=== PATIENT | female | born 1945 | race Caucasian/White ===

== ENCOUNTER 2020-01-24 14:17 | Outpatient (CLI) | payer MEDICARE, OTHER, SELFPAY ==
--- NOTE | ~2020-01-24 | CT_ITS ---
EXAMINATION: CT abdomen pelvis w con DATE: 01/24/2020 15:17 INDICATION: Renal cyst annual checkup TECHNIQUE: Computed tomography (CT) of the abdomen and pelvis was performed with 100 cc Omnipaque 350 intravenous contrast. Automated exposure control and iterative reconstruction technique were employe d. Exam dose: 663.35 mGy-cm total exam DLP. COMPARISON: 01/03/2019 CT abdomen pelvis FINDINGS: Fat-containing right foramen of Bochdalek hernia. Mild discoid atelectasis or scarring at the lung bases. Middle lobe calcified pulmonary granuloma. Hepatic calcifications, consistent with old granulomatous disease. The liver, gallbladder, spleen, pa ncreas, bile ducts and pancreatic duct, gallbladder and adrenal glands are unremarkable. There is interval enlargement of the previously reported 16 mm lower pole right renal cyst. This curr ently measures approximately 22 x 25 mm. MRI renal scan is recommended for further evaluation. There may be due to very small lower pole right renal cyst, too small to definitively characterize. Approxi mately 5 mm cortical cyst of the mid lateral left kidney. The urinary bladder is unremarkable. Status post hysterectomy. Normal caliber of the abdominal aorta. No intraperitoneal or retroperitoneal or pelvic mass lesion or adenopathy or ascites. There are numerous diverticula of the left colon, particularly the sigmoid area; no CT evidence of di verticulitis. A transverse colon diverticulum is noted near the hepatic flexure. Normal appendix. No bowel obstruction or intraperitoneal free air. Small fat-containing umbilical hernia. There is severe degenerative change at the apophyseal joints of the lumbar and lumbosacral area with associated grade 1 anterolisthesis at L4-5 and L5-S1. There is moderately prominent degenerative disc disease at L5-S1. Diffuse osteopenia. IMPRESSION: Interval enlargement of right lower pole renal cyst from 16 millimeters size to 22 x 25 mm dimension since 01/03/2019; MRI renal scan is recommended for further evaluation Dr. Cervantes telephoned the report and MRI kidney recommendation to Dr. Derek Van on 01/24/2020 at 162 0 hours Reviewed, dictated and finalized at [facility]. Reviewed, dictated and finalized at location B. [employer] IMPRESSION: Interval enlargement of right lower pole renal cyst from 16 millim eters size to 22 x 25 mm dimension since 01/03/2019; MRI renal scan is recommend ed for further evaluation Dr. Cervantes telephoned the report and MRI kidney recommendation to Dr. Derek harrison on 01/24/2020 at 1620 hours
[2020-01-24 14:54] LABS: Estimated Glomerular Filt Rate > 60
== END 2020-01-24 14:18 | disposition home or self-care (01) ==
LOC: CHSIMG 14:21
PROVIDERS: PCP Internal Medicine; Visit Provider Urology
DX: N28.1 Cyst of kidney, acquired (principal)
CPT/HCPCS: 74177; Q9965

== ENCOUNTER 2020-03-21 07:08 | Outpatient (CLI) | payer MEDICARE, SELFPAY ==
[2020-03-21 07:19] LABS: Basophils Absolute Auto 0.07 K/mm3 (0.00-0.10); Basophils Percent Auto 1.2 % (0.0-1.0); Eosinophils Absolute Auto 0.12 K/mm3 (0.02-0.50); Hemoglobin 14.7 g/dL (11.7-13.8); Immature Granulocyte Absolute 0.01 K/mm3 (0.00-0.00); Immature Granulocyte Percent A 0.2 % (0.0-0.0); Lymphocytes Percent Auto 32.9 % (18.0-42.0); Mean Corpuscular HGB Conc 33.4 g/dL (32.0-36.0); Mean Corpuscular Hemoglobin 29.1 pg (27.0-31.0); Mean Corpuscular Volume 87.1 fL (78.0-102.0); Mean Platelet Volume 9.8 fl (9.2-11.8); Monocytes Absolute Auto 0.44 K/mm3 (0.10-0.90); Monocytes Percent Auto 7.2 % (2.0-11.0); Neutrophils Absolute Auto 3.4 K/mm3 (1.7-7.2); Neutrophils Percent Auto 56.5 % (50.0-70.0); Platelet Count Result 208 K/mm3 (150-420); Red Blood Count 5.05 M/mm3 (4.20-5.40); Red Cell Distribution Width 13.2 % (11.6-14.4); White Blood Count 6.1 K/mm3 (4.8-10.8)
[2020-03-21 07:23] LABS: Add Urine Microscopic? NO; Appearance Urine Clear (Clear); Bilirubin Urine Negative (Negative); Blood Urine Negative (Negative); Color Urine Yellow (Yellow); Glucose Urine UA Negative (Negative); Ketones Urine Negative (Negative); Leukocyte Esterase Ur Negative (Negative); Nitrate Urine Negative (Negative); Protein Urine Negative (Negative); Urobilinogen Urine 0.2 mg/dL (0.2-1.0)
[2020-03-21 08:30] LABS: Alanine Aminotransferase 23 U/L (14-59); Albumin Level 3.8 g/dL (3.4-5.0); Alkaline Phosphatase 69 U/L (46-116); Anion Gap 15.8 mmol/L (7-16); Aspartate Amino Transferase 18 U/L (15-37); Bilirubin,Total 0.5 mg/dL (0.00-1.00); Blood Urea Nitrogen 13 mg/dL (7-18); Calcium 8.7 mg/dL (8.5-10.1); Carbon Dioxide 26 mmol/L (21-32); Chloride 107 mmol/L (98-108); Cholesterol 176 mg/dL (0-200); Creatine Kinase 60 U/L (26-192); Estimated Glomerular Filt Rate > 60; Free T4 Free Thyroxine 0.88 ng/dL (0.76-1.46); Glucose 112 mg/dL (70-99); HDL Direct 55 mg/dL (40-60); LDL Cholesterol Calculated 99 mg/dL (<130); Osmolality Calculated 299 mOsm/kg (285-295); Potassium 4.8 mmol/L (3.5-5.1); Sodium 144 mmol/L (136-145); Thyroid Stimulating Hormone 1.88 uIU/mL (0.36-3.74); Total Protein 6.6 g/dL (6.4-8.2); Triglycerides 108 mg/dL (0-150)
[2020-03-25 10:00] LABS: Vitamin D 25 Hydroxy 28 ng/mL (30-100)
== END 2020-03-21 07:09 | disposition home or self-care (01) ==
PROVIDERS: PCP Internal Medicine; Visit Provider Internal Medicine
DX: I48.0 Paroxysmal atrial fibrillation (principal); R73.01 Impaired fasting glucose; E04.2 Nontoxic multinodular goiter; E78.2 Mixed hyperlipidemia; M15.0 Primary generalized (osteo)arthritis; M81.0 Age-related osteoporosis without current pathological fracture
CPT/HCPCS: 36415; 80053; 80061; 81003; 82306; 82550; 83036; 84439; 84443; 84481; 85025

== ENCOUNTER 2020-06-02 12:15 | Outpatient (CLI) | payer MEDICARE, OTHER, SELFPAY ==
--- NOTE | ~2020-06-02 | MM_ITS ---
EXAMINATION: MM screening [facility] BI w bj HISTORY: Screening mammogram TECHNIQUE: Craniocaudal and mediolateral oblique 3-D tomosynthesis images were obtained and synthetic 2-D images were generated. CAD analysis was submitted and interpreted. COMPARISON: 05/07/2019, 10/26/2018, 05/04/2018 BREAST PARENCHYMAL COMPOSITION: The breasts are almost entirely fatty. FINDINGS: There is no evidence of suspicious mass, calcification, or architectural distortion to sugg est malignancy in either breast. There has been no suspicious interval change. IMPRESSION: 1. No mammographic evidence of malignancy. 2. Recommend routine screening mammography in one year. BI-RADS Category 1: Negative Reviewed, dictated and finalized at location A.
== END 2020-06-02 12:16 | disposition home or self-care (01) ==
LOC: CHSIMG 12:17
PROVIDERS: PCP Internal Medicine; Visit Provider Internal Medicine
DX: Z12.31 Encounter for screening mammogram for malignant neoplasm of breast (principal)
CPT/HCPCS: 77063; 77067

== ENCOUNTER 2020-08-14 07:51 | Outpatient (CLI) | payer MEDICARE, OTHER, SELFPAY ==
--- NOTE | ~2020-08-14 | CT_ITS ---
EXAMINATION: CT abdomen pelvis wo/w con DATE: 08/14/2020 08:40 INDICATION: Follow-up renal cyst TECHNIQUE: Computed tomography (CT) of the abdomen and pelvis was performed without and with 100 cc O mnipaque 350 intravenous contrast. The dose-length product was 927.16 mGy-cm. Automated exposure cont rol and iterative reconstruction technique were employed. COMPARISON: Comparison to multiple prior studies sequentially, with oldest reviewed study dated 03/31. . FINDINGS: Lung bases are unremarkable. No significant pleural or pericardial effusion. Dependent atel ectasis. Heart size normal. Elevated left diaphragm. There are calcified granulomas in the liver and spleen. There is a 2.5 cm cyst at the lower pole of the right kidney measuring 14 Hounsfield units pr econtrast and 19 Hounsfield units postcontrast there is a small exophytic 1 cm cyst lateral margin of the left kidney. The pancreas is unremarkable. Gallbladder is present. Nonobstructive bowel gas ivy valdemar. Normal appendix. There is scoliosis. Mild lumbar spondylosis. Grade 1 degenerative spondylolisth esis at L4-5. No significant vascular abnormality. No lymphadenopathy. Uterus is surgically absent. No abnormal pel cruz masses or fluid collections. Tiny fat-containing umbilical hernia. No osteolytic or osteoblastic lesions. IMPRESSION: 1. Stable 2.5 cm hypodense mass of the right kidney at the lower pole without appreciable enhancement , compatible with cyst. 1 cm left renal cyst also identified. Reviewed, dictated and finalized at location A. IMPRESSION: 1. Stable 2.5 cm hypodense mass of the right kidney at the lower pole without a ppreciable enhancement, compatible with cyst. 1 cm left renal cyst also identif ied.
[2020-08-14 08:09] LABS: Estimated Glomerular Filt Rate > 60
== END 2020-08-14 07:52 | disposition home or self-care (01) ==
PROVIDERS: PCP Internal Medicine; Visit Provider Urology
DX: N28.1 Cyst of kidney, acquired (principal)
CPT/HCPCS: 74178; Q9965

== ENCOUNTER 2020-10-07 14:47 | Outpatient (CLI) | payer MEDICARE, OTHER, SELFPAY | END 2020-10-07 14:48 | disposition home or self-care (01) | LOC: CHSLAB 14:51 | PROVIDERS: PCP Internal Medicine; Visit Provider Specialist | DX: L81.4 Other melanin hyperpigmentation (principal); C44.622 Squamous cell carcinoma of skin of right upper limb, including shoulder | CPT/HCPCS: 88305; 88342 ==

== ENCOUNTER 2020-10-17 07:41 | Outpatient (CLI) | payer MEDICARE, SELFPAY ==
[2020-10-17 07:51] LABS: Basophils Absolute Auto 0.05 K/mm3 (0.00-0.10); Basophils Percent Auto 0.8 % (0.0-1.0); Eosinophils Absolute Auto 0.15 K/mm3 (0.02-0.50); Eosinophils Percent Auto 2.5 % (1.0-6.0); Hematocrit 43.7 % (35.0-42.0); Hemoglobin 14.3 g/dL (11.7-13.8); Immature Granulocyte Absolute 0.01 K/mm3 (0.00-0.00); Immature Granulocyte Percent A 0.2 % (0.0-0.0); Lymphocytes Absolute Auto 2.11 K/mm3 (1.10-4.50); Lymphocytes Percent Auto 35.3 % (18.0-42.0); Mean Corpuscular HGB Conc 32.7 g/dL (32.0-36.0); Mean Corpuscular Hemoglobin 28.7 pg (27.0-31.0); Mean Corpuscular Volume 87.8 fL (78.0-102.0); Mean Platelet Volume 9.6 fl (9.2-11.8); Monocytes Absolute Auto 0.49 K/mm3 (0.10-0.90); Monocytes Percent Auto 8.2 % (2.0-11.0); Neutrophils Absolute Auto 3.2 K/mm3 (1.7-7.2); Platelet Count Result 205 K/mm3 (150-420); Red Blood Count 4.98 M/mm3 (4.20-5.40); Red Cell Distribution Width 13.1 % (11.6-14.4)
[2020-10-17 07:56] LABS: Appearance Urine Clear (Clear); Bilirubin Urine Negative (Negative); Color Urine Yellow (Yellow); Glucose Urine UA Negative (Negative); Ketones Urine Negative (Negative); Leukocyte Esterase Ur Negative (Negative); Nitrate Urine Negative (Negative); Protein Urine Negative (Negative); Specific Grav Ur >= 1.030 (1.010-1.020); Urobilinogen Urine 0.2 mg/dL (0.2-1.0)
[2020-10-17 08:00] LABS: Hemoglobin A1C 5.8 % (<5.7)
[2020-10-17 09:02] LABS: Alanine Aminotransferase 24 U/L (14-59); Albumin Level 3.9 g/dL (3.4-5.0); Alkaline Phosphatase 71 U/L (46-116); Anion Gap 8 mmol/L (8-16); Aspartate Amino Transferase 15 U/L (15-37); Bilirubin,Total 0.4 mg/dL (0.00-1.00); Blood Urea Nitrogen 14 mg/dL (7-18); Calcium 8.6 mg/dL (8.5-10.1); Carbon Dioxide 28 mmol/L (21-32); Chloride 107 mmol/L (98-108); Cholesterol 186 mg/dL (0-200); Creatine Kinase 64 U/L (26-192); Estimated Glomerular Filt Rate > 60; Free T3 2.78 pg/mL (2.18-3.98); Glucose 115 mg/dL (70-99); HDL Direct 54 mg/dL (40-60); LDL Cholesterol Calculated 111 mg/dL (<130); Osmolality Calculated 297 mOsm/kg (285-295); Potassium 4.7 mmol/L (3.5-5.1); Sodium 143 mmol/L (136-145); Thyroid Stimulating Hormone 2.24 uIU/mL (0.36-3.74); Total Protein 6.7 g/dL (6.4-8.2); Triglycerides 103 mg/dL (0-150)
[2020-10-17 09:10] LABS: Add Urine Microscopic? YES; Blood Urine Trace-Intact (Negative)
[2020-10-17 09:11] LABS: Bacteria Urine 2+ /hpf; RBC Urine 0-2 /hpf (0-2); Squamous Epithelial Cell Urine Moderate /hpf (Few); WBC Urine 0-3 /hpf (0-3)
[2020-10-21 12:25] LABS: Vitamin D 25 Hydroxy 24 ng/mL (30-100)
== END 2020-10-17 07:42 | disposition home or self-care (01) ==
LOC: CHSLAB 07:43
PROVIDERS: PCP Internal Medicine; Visit Provider Internal Medicine
DX: M81.0 Age-related osteoporosis without current pathological fracture (principal); I48.0 Paroxysmal atrial fibrillation; R73.01 Impaired fasting glucose; E78.2 Mixed hyperlipidemia; E04.2 Nontoxic multinodular goiter
CPT/HCPCS: 36415; 80053; 80061; 81001; 82306; 82550; 83036; 84439; 84443; 84481; 85025

== ENCOUNTER 2020-10-29 14:05 | Outpatient (CLI) | payer MEDICARE, OTHER, SELFPAY ==
--- NOTE | 2020-11-28 16:28 | WPDHOLTEREM ---
Holter/Event Monitor Holter/Event Monitor Date of procedure: 10/29/20 Procedure Type: Event monitor Indications: PAF Conclusion: 1. 27 days event monitor between 10/29/20-11/27/19. There are 59 available transmissions for analysis. 2. Predominant rhythm is sinus rhythm. HR range 50-120 bpm; average HR 65 bpm. 3. There are occasional premature supraventricular complexes with total burden of 1%. There is one short run of atrial tachycardia lasting 4 beats at 105-140 bpm. 4. There are intermittent premature ventricular complexes with total burden of 5%. No ventricular tachycardia. 5. No significant pauses greater than 2 seconds. 6. Patient reports 36 episodes of symptoms of skipped beats, heart racing and symptoms other than listed which demonstate sinus rhythm, HR range 52-82 bpm with PAC's and PVC's and an atrial triplet.
== END 2020-10-29 14:06 | disposition home or self-care (01) ==
PROVIDERS: PCP Internal Medicine; Visit Provider Internal Medicine
DX: I48.0 Paroxysmal atrial fibrillation (principal)
CPT/HCPCS: 93270

== ENCOUNTER 2021-05-14 08:01 | Outpatient (CLI) | payer MEDICARE, SELFPAY ==
[2021-05-14 08:22] LABS: Appearance Urine Clear (Clear); Bilirubin Urine Negative (Negative); Color Urine Yellow (Yellow); Glucose Urine UA Negative (Negative); Ketones Urine Negative (Negative); Leukocyte Esterase Ur Negative (Negative); Nitrate Urine Negative (Negative); Protein Urine Negative (Negative); Specific Grav Ur >= 1.030 (1.010-1.020); Urobilinogen Urine 0.2 mg/dL (0.2-1.0)
[2021-05-14 08:31] LABS: Creatinine Urine 154.33 mg/dL (40-278); MALB Creatinine Ratio 9.3 mg/g (0-30); Microalbumin Urine Random 14.5 mg/L
[2021-05-14 08:33] LABS: Add Urine Microscopic? YES; Blood Urine Trace-Intact (Negative); RBC Urine 0-2 /hpf (0-2); Squamous Epithelial Cell Urine Few /hpf (Few); WBC Urine None seen /hpf (0-3)
[2021-05-14 08:34] LABS: Bacteria Urine Trace /hpf
[2021-05-14 09:07] LABS: Alanine Aminotransferase 28 U/L (14-59); Albumin Level 3.7 g/dL (3.4-5.0); Alkaline Phosphatase 73 U/L (46-116); Anion Gap 11 mmol/L (8-16); Aspartate Amino Transferase 16 U/L (15-37); Bilirubin,Total 0.6 mg/dL (0.00-1.00); Blood Urea Nitrogen 19 mg/dL (7-18); Calcium 8.8 mg/dL (8.5-10.1); Carbon Dioxide 26 mmol/L (21-32); Chloride 105 mmol/L (98-108); Cholesterol 187 mg/dL (0-200); Creatine Kinase 63 U/L (26-192); Estimated Glomerular Filt Rate > 60; Free T4 Free Thyroxine 0.87 ng/dL (0.76-1.46); Glucose 123 mg/dL (70-99); HDL Direct 57 mg/dL (40-60); LDL Cholesterol Calculated 115 mg/dL (<130); Osmolality Calculated 297 mOsm/kg (285-295); Potassium 4.6 mmol/L (3.5-5.1); Sodium 142 mmol/L (136-145); Thyroid Stimulating Hormone 1.42 uIU/mL (0.36-3.74); Total Protein 6.5 g/dL (6.4-8.2); Triglycerides 73 mg/dL (0-150)
[2021-05-18 02:22] LABS: Vitamin D 25 Hydroxy 37 ng/mL (30-100)
== END 2021-05-14 08:02 | disposition home or self-care (01) ==
LOC: CHSLAB 08:03
PROVIDERS: PCP Internal Medicine; Visit Provider Internal Medicine
DX: I48.0 Paroxysmal atrial fibrillation (principal); R73.01 Impaired fasting glucose; E04.2 Nontoxic multinodular goiter; I10 Essential (primary) hypertension; E55.9 Vitamin D deficiency, unspecified
CPT/HCPCS: 36415; 80053; 80061; 81001; 82043; 82306; 82550; 84439; 84443

== ENCOUNTER 2021-06-05 12:09 | Outpatient (CLI) | payer MEDICARE, SELFPAY ==
--- NOTE | ~2021-06-05 | MM_ITS ---
EXAMINATION: MM screening [facility] BI w bj HISTORY: Screening mammogram TECHNIQUE: Craniocaudal and mediolateral oblique 3-D tomosynthesis images were obtained and synthetic 2-D images were generated. CAD analysis was submitted and interpreted. COMPARISON: 06/02/2020, 05/07/2019, 10/26/2018, 05/04/2018 BREAST PARENCHYMAL COMPOSITION: The breasts are almost entirely fatty. FINDINGS: There is no evidence of suspicious mass, calcification, or architectural distortion to sugg est malignancy in either breast. There has been no suspicious interval change. IMPRESSION: 1. No mammographic evidence of malignancy. 2. Recommend routine screening mammography in one year. BI-RADS Category 1: Negative Reviewed, dictated and finalized at location A.
== END 2021-06-05 12:10 | disposition home or self-care (01) ==
LOC: CHSIMG 12:12
PROVIDERS: PCP Internal Medicine; Visit Provider Internal Medicine
DX: Z12.31 Encounter for screening mammogram for malignant neoplasm of breast (principal)
CPT/HCPCS: 77063; 77067

== ENCOUNTER 2021-07-14 12:39 | Outpatient (CLI) | payer MEDICARE, OTHER, SELFPAY ==
--- NOTE | ~2021-07-14 | DEXA_ITS ---
Bone Density Report Name: Nola Grossman I Age: 76 Sex: Female Ethnicity: White Date of : 1945 Indication: postmenopausal; screening for osteoporosis; height loss; cancer; Referring Provider: Ryan Steven Study: Bone densitometry was performed. Exam Date: July 14, 2021 Accession number: [id number] Bone Density: Region BMD T-score Z-score Classification AP Spine(L1-L4) 0.969 -0.7 1.7 Normal Femoral Neck (Left) 0.779 -0.6 1.5 Normal Total Hip (Left) 0.912 -0.2 1.5 Normal Femoral Neck (Right) 0.784 -0.6 1.5 Normal Total Hip (Right) 0.919 -0.2 1.6 Normal Femoral Neck Mean 0.781 -0.6 1.5 Normal Total Hip Mean 0.916 -0.2 1.6 Normal World Health Organization criteria for BMD impression classify patients as: Normal (T-score at or above -1.0), Osteopenia (T-score between -1.0 and -2.5), or Osteoporosis (T-score at or below -2.5). 10-year Fracture Risk: FRAX not reported because: All T-scores for Spine Total, Hip Total, Femoral Neck at or above -1.0 Previous Exams: Region Exam Age BMD T-score BMD Change BMD Change Date g/cm2 vs Baseline vs Previous AP Spine (L1-L4) 07/14/2021 76 0.969 -0.7 -0.155 (-13.8% -0.140 (-12.6% 09/24/2015 70 1.109 0.6 -0.015 (-1.3%) -0.015 (-1.3%) 08/25/2007 62 1.124 0.7 Total Hip(Left) 07/14/2021 76 0.912 -0.2 -0.066 (-6.8%) 0.003 (0.3%)# 09/24/2015 70 0.910 -0.3 -0.069 (-7.0%) -0.069 (-7.0%) 08/25/2007 62 0.978 0.3 Total Hip(Right) 07/14/2021 76 0.919 -0.2 -0.108 (-10.5% -0.108 (-10.5% 08/25/2007 62 1.027 0.7 *Denotes significance at 95% confidence level, LSC for AP Spine = 0.022 g/cm2, LSC for Total Hip = 0.027 g/cm2 # Denotes dissimilar scan types or analysis methods Clinical Information Provided by Patient: Has used the following medications: Evista (i.e. raloxifene), Fosamax (i.e. alendronate), Vitamin D, Calcium Has the following medical conditions: Cancer Patient maximum height was 64 No regular weight bearing exercise Does not regularly consume dairy products Drinks caffeinated beverages Onset of menses at age 13 Number of children 3 Impression: The patient has normal bone mass. No significant bone loss was observed. Discussion: BONE DENSITY IS ABOVE THE MINIMUM DESIRABLE LEVEL AT ALL SKELETAL SITES TESTED. This patient?s bone mineral density is above the minimum desirable level (T-score -1.0 or better) at all sites measure
== END 2021-07-14 12:40 | disposition home or self-care (01) ==
LOC: CHSIMG 12:43
PROVIDERS: PCP Internal Medicine; Visit Provider Internal Medicine
DX: M81.0 Age-related osteoporosis without current pathological fracture (principal)
CPT/HCPCS: 77080

== ENCOUNTER 2021-08-10 15:06 | Outpatient (CLI) | payer MEDICARE, OTHER, SELFPAY ==
--- NOTE | ~2021-08-10 | XR_ITS ---
EXAMINATION: XR foot LT min 3V EXAM DATE: 08/10/2021 15:29 INDICATION: Pain, metatarsalgia left foot,H/O Surgery 2017. TECHNIQUE: Left foot dorsoplantar, lateral and oblique projections obtained and reviewed. There is n o prior study for comparison. FINDINGS: Left 1st metatarsal osteotomy with 2 fusion pins, and probable bunionectomy. Similar pin i n the neck/head of the 2nd metatarsal bone. 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 Possible ankylosis of the 2nd, 3rd proximal interphalangeal joints. There are no acute fracture s identified. No periosteal reaction or band of sclerosis to suggest subacute stress fracture. Pes pl anus. IMPRESSION: Chronic findings as above. Reviewed, dictated and finalized at location B. IMPRESSION: Chronic findings as above.
[2021-08-10 16:32] LABS: Estimated Glomerular Filt Rate > 60
== END 2021-08-10 15:07 | disposition home or self-care (01) ==
LOC: CHSIMG 15:10
PROVIDERS: PCP Internal Medicine; Visit Provider Podiatrist
DX: M79.672 Pain in left foot (principal); M77.42 Metatarsalgia, left foot
CPT/HCPCS: 36415; 73630; 82565

== ENCOUNTER 2021-08-17 07:42 | Outpatient (CLI) | payer MEDICARE, OTHER, SELFPAY ==
--- NOTE | ~2021-08-17 | CT_ITS ---
EXAMINATION: CT abdomen pelvis wo/w con DATE: 08/17/2021 08:37 INDICATION: Follow-up renal cyst TECHNIQUE: Computed tomography (CT) of the abdomen and pelvis was performed without and with 100 mL O mnipaque-350 intravenous contrast. Automated exposure control and iterative reconstruction technique were employed. The dose-length product was 998.30 mGy-cm. COMPARISON: 08/14/2020 FINDINGS: Minimal atelectasis at the lingula and in the dependent bilateral lower lobes. Heart size is normal. Mild aortic valve calcification. No pericardial or pleural effusion. Multiple small hepatic calcific lesions and single tiny splenic calcification consistent with old granulomatous disease. Gallbladder, pancreas and bilateral adrenal glands are normal. Low-attenuation nonenhancing renal cysts measuring 3.0 cm at the lower pole of the right kidney, 8 mm at the interpolar region of the left kidney and 3 mm likely cyst at the lower pole of the right kidney which is too small to definitively characterize . There is moderate colonic diverticulosis with a sigmoid predominance. There is no adjacent inflamm atory change to suggest diverticulitis. Small bowel and appendix are normal. Bladder is normal. The u terus is not identified and has likely been surgically resected. No free intraperitoneal gas or fluid . No pathologically enlarged abdominal or pelvic lymphadenopathy. Mild lumbar levoscoliosis. Moderate lower thoracic and lower lumbar spondylosis. Mild right and mild to moderate left hip osteoarthritis . IMPRESSION: 1. Bilateral nonenhancing renal cysts. Reviewed, dictated and finalized at location A.
== END 2021-08-17 07:43 | disposition home or self-care (01) ==
LOC: CHSIMG 07:43
PROVIDERS: PCP Internal Medicine; Visit Provider Urology
DX: N28.1 Cyst of kidney, acquired (principal)
CPT/HCPCS: 74178; Q9967

== ENCOUNTER 2021-11-12 07:51 | Outpatient (CLI) | payer MEDICARE, OTHER, SELFPAY ==
[2021-11-12 08:01] LABS: Basophils Absolute Auto 0.07 K/mm3 (0.00-0.10); Basophils Percent Auto 1.1 % (0.0-1.0); Eosinophils Absolute Auto 0.15 K/mm3 (0.02-0.50); Eosinophils Percent Auto 2.4 % (1.0-6.0); Hemoglobin 15.6 g/dL (11.7-13.8); Immature Granulocyte Absolute 0.01 K/mm3 (0.00-0.00); Immature Granulocyte Percent A 0.2 % (0.0-0.0); Lymphocytes Percent Auto 34.6 % (18.0-42.0); Mean Corpuscular HGB Conc 33.9 g/dL (32.0-36.0); Mean Corpuscular Hemoglobin 29.2 pg (27.0-31.0); Mean Corpuscular Volume 86.1 fL (78.0-102.0); Mean Platelet Volume 9.7 fl (9.2-11.8); Monocytes Percent Auto 7.9 % (2.0-11.0); Neutrophils Absolute Auto 3.4 K/mm3 (1.7-7.2); Neutrophils Percent Auto 53.8 % (50.0-70.0); Platelet Count Result 224 K/mm3 (150-420); Red Blood Count 5.34 M/mm3 (4.20-5.40); White Blood Count 6.4 K/mm3 (4.8-10.8)
[2021-11-12 08:20] LABS: Add Urine Microscopic? NO; Appearance Urine Clear (Clear); Bilirubin Urine Negative (Negative); Blood Urine Negative (Negative); Color Urine Light Yellow (Yellow); Glucose Urine UA Negative (Negative); Ketones Urine Negative (Negative); Leukocyte Esterase Ur Negative (Negative); Nitrate Urine Negative (Negative); Protein Urine Negative (Negative); Urobilinogen Urine 0.2 mg/dL (0.2-1.0)
[2021-11-12 08:30] LABS: Hemoglobin A1C 6.1 % (<5.7)
[2021-11-12 09:45] LABS: Alanine Aminotransferase 26 U/L (14-59); Albumin Level 3.9 g/dL (3.4-5.0); Alkaline Phosphatase 83 U/L (46-116); Anion Gap 8 mmol/L (8-16); Aspartate Amino Transferase 19 U/L (15-37); Bilirubin,Total 0.6 mg/dL (0.00-1.00); Blood Urea Nitrogen 14 mg/dL (7-18); Calcium 9.1 mg/dL (8.5-10.1); Carbon Dioxide 29 mmol/L (21-32); Chloride 104 mmol/L (98-108); Cholesterol 217 mg/dL (0-200); Creatine Kinase 57 U/L (26-192); Estimated Glomerular Filt Rate > 60; Free T3 2.78 pg/mL (2.18-3.98); Free T4 Free Thyroxine 0.83 ng/dL (0.76-1.46); Glucose 117 mg/dL (70-99); HDL Direct 65 mg/dL (40-60); LDL Cholesterol Calculated 133 mg/dL (<130); Osmolality Calculated 293 mOsm/kg (285-295); Potassium 4.8 mmol/L (3.5-5.1); Sodium 141 mmol/L (136-145); Thyroid Stimulating Hormone 1.49 uIU/mL (0.36-3.74); Total Protein 6.9 g/dL (6.4-8.2); Triglycerides 94 mg/dL (0-150)
[2021-11-16 04:12] LABS: Vitamin D 25 Hydroxy 26 ng/mL (30-100)
== END 2021-11-12 07:52 | disposition home or self-care (01) ==
LOC: CHSLAB 07:53
PROVIDERS: PCP Internal Medicine; Visit Provider Internal Medicine
DX: R73.01 Impaired fasting glucose (principal); M81.0 Age-related osteoporosis without current pathological fracture; E78.2 Mixed hyperlipidemia; I48.0 Paroxysmal atrial fibrillation; E04.2 Nontoxic multinodular goiter
CPT/HCPCS: 36415; 80053; 80061; 81003; 82306; 82550; 83036; 84439; 84443; 84481; 85025

== ENCOUNTER 2022-03-18 07:08 | Outpatient (CLI) | payer MEDICARE, SELFPAY ==
[2022-03-18 07:41] LABS: Hemoglobin A1C 5.7 % (<5.7)
[2022-03-18 07:54] LABS: Alanine Aminotransferase 22 U/L (14-59); Albumin Level 3.5 g/dL (3.4-5.0); Alkaline Phosphatase 72 U/L (46-116); Anion Gap 7 mmol/L (8-16); Aspartate Amino Transferase 16 U/L (15-37); Bilirubin,Total 0.6 mg/dL (0.00-1.00); Blood Urea Nitrogen 15 mg/dL (7-18); Calcium 8.8 mg/dL (8.5-10.1); Carbon Dioxide 29 mmol/L (21-32); Chloride 107 mmol/L (98-108); Cholesterol 211 mg/dL (0-200); Estimated Glomerular Filt Rate > 60; Glucose 117 mg/dL (70-99); HDL Direct 56 mg/dL (40-60); LDL Cholesterol Calculated 135 mg/dL (<130); Osmolality Calculated 297 mOsm/kg (285-295); Potassium 4.1 mmol/L (3.5-5.1); Sodium 143 mmol/L (136-145); Total Protein 6.6 g/dL (6.4-8.2); Triglycerides 101 mg/dL (0-150)
== END 2022-03-18 07:09 | disposition home or self-care (01) ==
LOC: CHSLAB 07:10
PROVIDERS: PCP Internal Medicine; Visit Provider Internal Medicine
DX: E78.2 Mixed hyperlipidemia (principal); R73.01 Impaired fasting glucose
CPT/HCPCS: 36415; 80053; 80061; 83036

== ENCOUNTER 2022-06-08 12:48 | Outpatient (CLI) | payer MEDICARE, OTHER, SELFPAY ==
--- NOTE | ~2022-06-08 | MM_ITS ---
EXAMINATION: MM screening [facility] BI w bj HISTORY: Screening TECHNIQUE: Craniocaudal and mediolateral oblique 3-D tomosynthesis images were obtained and synthetic 2-D images were generated. CAD analysis was submitted and interpreted. COMPARISON: Comparison to multiple prior studies sequentially, with oldest reviewed study dated 04/05. BREAST PARENCHYMAL COMPOSITION: There are scattered areas of fibroglandular density. FINDINGS: There is no evidence of suspicious mass, calcification, or architectural distortion to sugg est malignancy in either breast. There has been no suspicious interval change. IMPRESSION: 1. No mammographic evidence of malignancy. 2. Recommend routine screening mammography in one year. BI-RADS Category 1: Negative Reviewed, dictated and finalized at location A.
== END 2022-06-08 12:49 | disposition home or self-care (01) ==
LOC: CHSIMG 12:49
PROVIDERS: PCP Internal Medicine; Visit Provider Internal Medicine
DX: Z12.31 Encounter for screening mammogram for malignant neoplasm of breast (principal)
CPT/HCPCS: 77063; 77067

== ENCOUNTER 2022-11-11 08:54 | Outpatient (CLI) | payer MEDICARE, OTHER, SELFPAY ==
[2022-11-11 09:30] LABS: Add Urine Microscopic? NO; Appearance Urine Clear (Clear); Basophils Absolute Auto 0.09 K/mm3 (0.00-0.10); Basophils Percent Auto 1.1 % (0.0-1.0); Bilirubin Urine Negative (Negative); Blood Urine Negative (Negative); Color Urine Light Yellow (Yellow); Eosinophils Absolute Auto 0.13 K/mm3 (0.02-0.50); Eosinophils Percent Auto 1.6 % (1.0-6.0); Glucose Urine UA Negative (Negative); Hematocrit 45.5 % (35.0-42.0); Hemoglobin 14.7 g/dL (11.7-13.8); Immature Granulocyte Absolute 0.02 K/mm3 (0.00-0.00); Immature Granulocyte Percent A 0.2 % (0.0-0.0); Ketones Urine Negative (Negative); Leukocyte Esterase Ur Negative LEU/UL (Negative); Lymphocytes Absolute Auto 2.19 K/mm3 (1.10-4.50); Lymphocytes Percent Auto 26.9 % (18.0-42.0); Mean Corpuscular HGB Conc 32.3 g/dL (32.0-36.0); Mean Corpuscular Hemoglobin 28.4 pg (27.0-31.0); Monocytes Absolute Auto 0.57 K/mm3 (0.10-0.90); Neutrophils Absolute Auto 5.2 K/mm3 (1.7-7.2); Neutrophils Percent Auto 63.2 % (50.0-70.0); Nitrate Urine Negative (Negative); Platelet Count Result 232 K/mm3 (150-420); Protein Urine Negative (Negative); Red Blood Count 5.17 M/mm3 (4.20-5.40); Red Cell Distribution Width 13.2 % (11.6-14.4); Urobilinogen Urine 0.2 mg/dL (0.2-1.0); White Blood Count 8.2 K/mm3 (4.8-10.8)
[2022-11-11 09:41] LABS: Creatinine Urine 114.21 mg/dL (40-278); MALB Creatinine Ratio 11.3 mg/g (0-30); Microalbumin Urine Random < 13.0 mg/L
[2022-11-11 09:43] LABS: Hemoglobin A1C 5.8 % (<5.7)
[2022-11-11 09:58] LABS: Alanine Aminotransferase 21 U/L (14-59); Albumin Level 4.1 g/dL (3.4-5.0); Alkaline Phosphatase 77 U/L (46-116); Anion Gap 6 mmol/L (8-16); Aspartate Amino Transferase 14 U/L (15-37); Bilirubin,Total 0.6 mg/dL (0.00-1.00); Blood Urea Nitrogen 16 mg/dL (7-18); Carbon Dioxide 32 mmol/L (21-32); Chloride 104 mmol/L (98-108); Cholesterol 243 mg/dL (0-200); Creatine Kinase 89 U/L (26-192); Estimated Glomerular Filt Rate > 60; Free T4 Free Thyroxine 0.93 ng/dL (0.76-1.46); Glucose 106 mg/dL (70-99); HDL Direct 64 mg/dL (40-60); LDL Cholesterol Calculated 162 mg/dL (<130); Osmolality Calculated 295 mOsm/kg (285-295); Potassium 4.6 mmol/L (3.5-5.1); Sodium 142 mmol/L (136-145); Thyroid Stimulating Hormone 1.12 uIU/mL (0.36-3.74); Triglycerides 85 mg/dL (0-150)
== END 2022-11-11 08:55 | disposition home or self-care (01) ==
LOC: CHSLAB 08:57
PROVIDERS: PCP Internal Medicine; Visit Provider Internal Medicine
DX: R73.01 Impaired fasting glucose (principal); E78.2 Mixed hyperlipidemia; E04.2 Nontoxic multinodular goiter; N39.0 Urinary tract infection, site not specified
CPT/HCPCS: 36415; 80053; 80061; 81003; 82043; 82550; 83036; 84439; 84443; 85025

== ENCOUNTER 2023-05-26 08:37 | Outpatient (CLI) | payer MEDICARE, SELFPAY ==
[2023-05-26 08:58] LABS: Appearance Urine Clear (Clear); Bilirubin Urine Negative (Negative); Blood Urine Negative (Negative); Color Urine Yellow (Yellow); Glucose Urine UA Negative (Negative); Ketones Urine Negative (Negative); Leukocyte Esterase Ur Negative (Negative); Nitrate Urine Negative (Negative); Protein Urine Negative (Negative); Specific Grav Ur 1.025 (1.010-1.020); Urobilinogen Urine 0.2 mg/dL (0.2-1.0)
[2023-05-26 09:06] LABS: Add Urine Microscopic? NO
[2023-05-26 09:09] LABS: Creatinine Urine 143.72 mg/dL (40-278); Microalbumin Urine Random < 13.0 mg/L
[2023-05-26 09:59] LABS: Alanine Aminotransferase 25 U/L (14-59); Albumin Level 3.8 g/dL (3.4-5.0); Alkaline Phosphatase 72 U/L (46-116); Anion Gap 9 mmol/L (8-16); Aspartate Amino Transferase 17 U/L (15-37); Bilirubin,Total 0.4 mg/dL (0.00-1.00); Blood Urea Nitrogen 18 mg/dL (7-18); Calcium 8.8 mg/dL (8.5-10.1); Carbon Dioxide 27 mmol/L (21-32); Chloride 107 mmol/L (98-108); Cholesterol 169 mg/dL (0-200); Creatine Kinase 121 U/L (26-192); Estimated Glomerular Filt Rate > 60; Free T3 2.79 pg/mL (2.18-3.98); Free T4 Free Thyroxine 0.84 ng/dL (0.76-1.46); Glucose 122 mg/dL (70-99); HDL Direct 61 mg/dL (40-60); LDL Cholesterol Calculated 97 mg/dL (<130); Osmolality Calculated 298 mOsm/kg (285-295); Potassium 4.8 mmol/L (3.5-5.1); Sodium 143 mmol/L (136-145); Total Protein 6.7 g/dL (6.4-8.2); Triglycerides 57 mg/dL (0-150)
== END 2023-05-26 08:38 | disposition home or self-care (01) ==
LOC: CHSLAB 08:39
PROVIDERS: PCP Internal Medicine; Visit Provider Internal Medicine
DX: R73.01 Impaired fasting glucose (principal); E78.2 Mixed hyperlipidemia; I10 Essential (primary) hypertension; E04.2 Nontoxic multinodular goiter
CPT/HCPCS: 36415; 80053; 80061; 81003; 82043; 82550; 83036; 84439; 84443; 84481

== ENCOUNTER 2023-06-10 13:16 | Outpatient (CLI) | payer MEDICARE, OTHER, SELFPAY ==
--- NOTE | ~2023-06-10 | MM_ITS ---
EXAMINATION: MM screening [facility] BI w bj HISTORY: Screening TECHNIQUE: Craniocaudal and mediolateral oblique 3-D tomosynthesis images were obtained and synthetic 2-D images were generated. CAD analysis was submitted and interpreted. COMPARISON: Comparison to multiple prior studies sequentially, with oldest reviewed study dated 05/04. BREAST PARENCHYMAL COMPOSITION: The breasts are almost entirely fatty. FINDINGS: There is no evidence of suspicious mass, calcification, or architectural distortion to sugg est malignancy in either breast. There has been no suspicious interval change. IMPRESSION: 1. No mammographic evidence of malignancy. 2. Recommend routine screening mammography in one year. BI-RADS Category 1: Negative Reviewed, dictated and finalized at location A.
== END 2023-06-10 13:17 | disposition home or self-care (01) ==
LOC: CHSIMG 13:17
PROVIDERS: PCP Internal Medicine; Visit Provider Internal Medicine
DX: Z12.31 Encounter for screening mammogram for malignant neoplasm of breast (principal)
CPT/HCPCS: 77063; 77067